=== PATIENT | male | born 1970 | race Two or more races ===

== ENCOUNTER 2020-03-18 06:10 | Outpatient (REF) | payer OTHER, SELFPAY | END 2020-03-18 06:11 | disposition home or self-care (01) | LOC: HO.LAB 06:10 | PROVIDERS: PCP Internal Medicine; Visit Provider Internal Medicine | DX: Z20.828 Contact with and (suspected) exposure to other viral communicable diseases (principal) | CPT/HCPCS: C9803; U0003 ==

== ENCOUNTER 2020-07-23 08:55 | Outpatient (REF) | payer OTHER, SELFPAY ==
[2020-07-23 12:40] LABS: SARS COV2 PCR INHOUSE POSITIVE (Negative)
== END 2020-07-23 08:56 | disposition home or self-care (01) ==
LOC: HO.LAB 08:55
PROVIDERS: Visit Provider Internal Medicine
DX: Z20.822 Contact with and (suspected) exposure to COVID-19 (principal)
CPT/HCPCS: C9803; U0003

== ENCOUNTER 2020-08-05 09:31 | Outpatient (REF) | payer OTHER, SELFPAY ==
[2020-08-05 09:58] LABS: COVID-19 Test Negative (Negative); IDNOW Serial# 55D5AD1C
== END 2020-08-05 09:32 | disposition home or self-care (01) ==
LOC: HO.LAB 09:31
PROVIDERS: Visit Provider Internal Medicine
DX: Z20.822 Contact with and (suspected) exposure to COVID-19 (principal)
CPT/HCPCS: 36415; 87635; C9803